=== PATIENT | female | born 1955 | race Caucasian/White ===

== ENCOUNTER 2016-05-08 06:49 | Day surgery (SDC) | payer BC ==
[~2016-05-08 06:49] MED LIST: Buffered Lidocaine 1% SYR 3ML* 3 ML/SYR SYRINGE INTRADERM ONE; Famotidine IV* 10 MG/ML 2 ML (20 mg) IV ONE; Morphine INJ* 2 MG/ML 1 ML CARPUJECT IV PRN; PROCHLORPERAZINE INJ 5 MG/ML 2 ML VIAL IV PRN; oxyCODONE/Acetamin 5/325 MG* TAB PO PRN
[2016-05-08] MEDS ORDERED: ceFAZolin 2 GM PREMIX (*) 2 GM/50 ML BAG IVPB ONE (06:57)
[2016-05-08] MEDS ORDERED: Lidocaine 2.5%/Prilocain 2.5%* 5 GM TUBE ONE (06:57)
[2016-05-08] MEDS ORDERED: Famotidine IV* 10 MG/ML 2 ML (20 mg) ONE (06:57)
[2016-05-08] MEDS ORDERED: Buffered Lidocaine 1% SYR 3ML* 3 ML/SYR SYRINGE ONE (06:57)
--- NOTE | 2016-05-08 10:41 | RAD ---
HISTORY: Breast cancer. Lymphoscintigraphy of the breast for the purposes of sentinel node identification. COMPARISONS: April 02, 2016 mammogram TECHNIQUE: Previous imaging was reviewed. The procedure was explained to the patient who indicated that she understood. Written and verbal informed consent was obtained, with an opportunity to ask and answer questions. The breast was marked. A timeout was performed. The patient was prepped and draped in the usual sterile fashion. Technetium 99m sulfur colloid was administered in a subdermal fashion in 4 divided aliquots in a 180 degree arc along the areolar margin of the left breast, centered on the position of the primary breast lesion. Cine and planar imaging was performed. The first appearing axillary node was identified with the overlying skin marked. DOSE: Technetium 99m sulfur colloid, 0.303 millicuries, injected at 8:25 AM on May 08, 2016 FINDINGS: Uptake is noted within a left axillary lymph node. The site of uptake is marked on the overlying skin. OTHER: None IMPRESSION: TECHNICALLY SUCCESSFUL, UNCOMPLICATED, LYMPHOSCINTIGRAPHY OF THE LEFT BREAST FOR THE PURPOSES OF SENTINEL NODE LOCALIZATION.
[2016-05-08] MEDS ORDERED: fentaNYL* 50 MCG/ML 2 ML VIAL (100 MCG VIAL) ONE ×2 (11:41→13:33)
[2016-05-08] MEDS ORDERED: KETAMINE HCL* 50 MG/ML 10 ML VIAL ONE (11:42)
[2016-05-08] MEDS ORDERED: Midazolam* 1 MG/ML 5 ML VIAL (5 MG) ONE (11:42)
[2016-05-08] MEDS ORDERED: Bupivacaine 0.5% W/EPI SDV* 30 ML VIAL ONE (12:37)
[2016-05-08] MEDS ORDERED: Lidocaine 1% INJ* 10 MG/ML 30 ML SDV ONE (12:37)
[2016-05-08] MEDS ORDERED: Lidocaine 2% PF* 10 ML AMP ONE (13:15)
[2016-05-08] MEDS ORDERED: Propofol* 10 MG/ML 20 ML BTL IV PUSH ONE (13:16)
[2016-05-08] MEDS ORDERED: Lidocaine 2% MPF* 2 ML VIAL ONE (13:16)
[2016-05-08] MEDS ORDERED: oxyCODONE/Acetamin 5/325 MG* TAB ONE (13:33)
[2016-05-08] MEDS: fentaNYL* 50 MCG/ML 2 ML VIAL (100 MCG VIAL) IV PRN ×3 (13:35→13:41)
[2016-05-08 13:45] VITALS: BP 130/74
--- NOTE | 2016-05-08 20:58 | OP ---
DATE OF OPERATION: 05/08/16 [facility] DATE OF : 51 SURGEON: Niko Bravo MD FOOD SERVICE SPECIALIST: Tabitha Bueno NP ANESTHESIOLOGIST: Dr. Akhtar. ANESTHESIA: LMAC. PRE-OP DIAGNOSIS: Left breast carcinoma. POST-OP DIAGNOSIS: Left breast carcinoma. OPERATIVE PROCEDURE: Wide local excision, sentinel node biopsy of left breast carcinoma. DESCRIPTION OF PROCEDURE: The patient was supine on the operating table. After adequate intravenous sedation, compression stockings, Ling-Hugger warmer and intravenous antibiotics, the left breast was prepped with antiseptic and draped in a sterile fashion. Local infiltrative anesthesia was administered. An elliptical incision was created approximately 3 x 5 cm as the tumor was right up under the skin. A piece of breast tissue approximately 5 x 6 x 5 cm was excised and marked with usual localizing sutures and sent fresh to pathology. It was felt that maybe this was a little close to the superior edge , so a little additional superior tissue was taken and marked with the suture for the true margin. Hemostasis was obtained using electrocautery. Local anesthetic was additionally administered down at the muscle level and closure accomplished using 3-0 and 5-0 Polysorb followed by Steri-Strips. In the left axilla, local anesthetic was administered. A 3-cm to 4-cm incision was created and carried down to the axillary lymph node basin where a solitary sentinel node with a count of 392 was identified and removed. The basin count was down to approximately 2, thereafter, no other sentinel nodes were identified. Hemostasis was good. Closure was accomplished with 3-0 and 5-0 Polysorb followed by Steri-Strips. She tolerated the procedure well, was awakened and brought to Recovery in good condition. There were no complications. No drains. Pathologic specimens were the 3 as noted above. Sponge and instrument counts correct. Estimated blood loss was 30 mL. CC: Dotty Ba MD; Charly Torres MD; Lanny Juan MD * [id number]/[facility] #: [id number] MTDD
[2016-05-19 15:10] LABS: HER2 Fixative Formalin; HER2 Result Summary Equivocal; HER2 Tissue ID S17-760-1D
== END 2016-05-08 14:24 | disposition home or self-care (01) ==
LOC: OR 06:49
PROVIDERS: ATTEND Surgery
DX: C50.212 Malignant neoplasm of upper-inner quadrant of left female breast (principal); Z87.891 Personal history of nicotine dependence; F41.9 Anxiety disorder, unspecified; K21.9 Gastro-esophageal reflux disease without esophagitis
CPT/HCPCS: 78195; 88271; 88274; 88307; 88342; A9270-GY; A9541; J0690; J2001; J2250; J2704; J3010